=== PATIENT | female | born 1995 | race Caucasian/White ===

== ENCOUNTER 2017-11-14 22:55 | Emergency (ER) | payer OTHER ==
[~2017-11-14] VITALS: Ht 162.6 cm; Wt 83.9 kg
[2017-11-14 22:59] VITALS: BP 116/74
--- NOTE | 2017-11-14 23:03 | NUR ---
PT PROVIDED URINE SAMPLE THEN AMBULATED TO [facility] W/ STEADY GAIT IN STABLE CONDITION.
--- NOTE | 2017-11-14 23:12 | NUR ---
PT TO ER BED 5
--- NOTE | 2017-11-14 23:41 | NUR ---
PT BIB SELF C/O HEADACHE, N/V SINCE THIS AFTERNOON. ABD IS FLAT, SOFT, NON TENDER, ACTIVE BS X4. PT STATES SHE IS 6-7 WEEKS , LMP September. PT DENIES ANY VAGINAL BLEEDING. PT LAYING IN BED, AWAKE, COMFORT NEEDS MET AT THIS TIME.
[2017-11-15] MEDS ORDERED: diphenhydrAMINE 50 MG/ML VIAL IVP ONE (00:30)
[2017-11-15] MEDS ORDERED: NACL 0.9% 1,000 ML IV ONE (00:30)
[2017-11-15] MEDS ORDERED: METOCLOPRAMIDE 10 MG/2 ML INJ VIAL IVP STA (00:30)
--- NOTE | 2017-11-15 01:12 | NUR ---
PT TO US VIA WHEELCHAIR.
--- NOTE | 2017-11-15 01:12 | NUR ---
Higinio woodward in [facility] - 11/15/17 at 0116 by MEDBLAKE PT US VIA WHEELCHAIR.
[2017-11-15 01:18] LABS: APPEARANCE,URINE CLEAR (CLEAR); BILIRUBIN,URINE NEGATIVE (NEGATIVE); BLOOD, URINE NEGATIVE (NEGATIVE); COLOR,URINE YELLOW (YELLOW); LEUKOCYTE ESTERASE ,URINE NEGATIVE (NEGATIVE); NITRITE, URINE NEGATIVE (NEGATIVE); UGLUCOSE NEGATIVE (NEGATIVE)
[2017-11-15 02:58] VITALS: BP 115/68
--- NOTE | 2017-11-15 03:04 | NUR ---
Patient discharged with v/s stable. Written and verbal after care instructions given and explained. Patient alert, oriented and verbalized understanding of instructions. Ambulatory with steady gait. All questions addressed prior to discharge. ID band removed. Patient advised to follow up with PMD. Rx of REGLAN 5MG given. Patient educated on indication of medication including possible reaction and side effects. Opportunity to ask questions provided and answered.
== END 2017-11-15 02:58 | disposition home or self-care (01) ==
LOC: MED 22:55
DX: O21.8 Other vomiting complicating pregnancy (principal); O26.891 Other specified pregnancy related conditions, first trimester; R10.13 Epigastric pain; R42 Dizziness and giddiness; R51 Headache; J45.909 Unspecified asthma, uncomplicated; Z3A.01 Less than 8 weeks gestation of pregnancy
CPT/HCPCS: 76817; 81003; 81025; 96361; 96374; 96375; 99285; J1200; J2765; J7030; Q0092

== ENCOUNTER 2017-11-27 19:38 | Emergency (ER) | payer OTHER ==
[~2017-11-27] VITALS: Ht 154.9 cm; Wt 79.4 kg
[2017-11-27 20:02] VITALS: BP 113/82
--- NOTE | 2017-11-27 20:02 | NUR ---
PT PRESENTS TO ED N/V X4 WEEKS. PT STATES 14 WKS . C/O SCANT BRIGHT RED BLOOD DROPPLETS IN EMESIS. PT DENIES COFFEE GROUND EMESIS. PT A&OX4. VSS. POSITIONED IN BED FOR COMFORT. ER MD AWARE. CONTINUE TO MONITOR.
--- NOTE | 2017-11-27 20:02 | NUR ---
TO BED # 4 AMBULATORY, REPORT GIVEN TO ZEINAB MARTINEZ
--- NOTE | 2017-11-27 21:28 | NUR ---
PT TAKEN TO ULTRASOUND
--- NOTE | 2017-11-27 21:45 | NUR ---
PT RETURN FROM ULTRASOUND
--- NOTE | 2017-11-27 21:51 | NUR ---
Dr. Welch evaluating patient at bedside.
[2017-11-27] MEDS ORDERED: NACL 0.9% 500 ML IV ONE (22:25)
[2017-11-27] MEDS ORDERED: ONDANSETRON 4 MG/2 ML VIAL IVP ONE (22:25)
[2017-11-27 22:30] LABS: BASOPHILS % (AUTO) 0.2 % (0.0-2.0); EOSINOPHILS % (AUTO) 0.2 % (0.0-4.0); HEMATOCRIT 41.5 % (36-48); HEMOGLOBIN 14.1 g/dL (12.0-16.0); LYMPHOCYTES # (AUTO) 2.7 K/uL (2.5-16.5); LYMPHOCYTES % (AUTO) 20.7 % (20.5-51.1); MEAN CORPUSCULAR HEMOGLOBIN 31 pg (27-31); MEAN CORPUSCULAR HGB CONC 34 g/dL (33-37); MONOCYTES # (AUTO) 0.7 K/uL (0.8-1.0); MONOCYTES % (AUTO) 5.5 % (1.7-9.3); NEUTROPHILS # (AUTO) 9.6 K/uL (1.8-7.7); NEUTROPHILS % (AUTO) 73.4 % (42.2-75.2); PLATELET COUNT (AUTO) 222 K/uL (140-450); RED BLOOD CELL COUNT(AUTO) 4.56 MIL/uL (4.20-5.40); RED CELL DISTRIBUTION WIDTH 12.9 % (11.6-13.7); WHITE BLOOD COUNT (AUTO) 13.2 K/uL (4.5-11.0)
[2017-11-27 22:43] LABS: APPEARANCE,URINE CLOUDY (CLEAR); BILIRUBIN,URINE NEGATIVE (NEGATIVE); BLOOD, URINE 1+ (NEGATIVE); COLOR,URINE YELLOW (YELLOW); LEUKOCYTE ESTERASE ,URINE 2+ (NEGATIVE); NITRITE, URINE NEGATIVE (NEGATIVE); UGLUCOSE NEGATIVE (NEGATIVE)
[2017-11-27 22:44] LABS: ANION GAP 13.6 (8-16); CARBON DIOXIDE 27.3 mmol/L (21-32); CREATININE 0.6 mg/dL (0.6-1.3); POTASSIUM 3.9 mmol/L (3.5-5.1)
[2017-11-27 23:13] LABS: RBC,URINE 11-20 (MOD) /HPF (0-5); WBC,URINE TOO MANY TO COUNT /HPF (0-5)
--- NOTE | 2017-11-27 23:26 | NUR ---
PT IN BED RESTING WITH EYES OPEN. POSITIONED FOR COMFORT. ER MD AWARE. CONTINUE TO MONITOR.
[2017-11-27 23:38] VITALS: BP 113/75
--- NOTE | 2017-11-27 23:38 | NUR ---
Patient discharged with v/s stable. Written and verbal after care instructions given and explained. Patient alert, oriented and verbalized understanding of instructions. Ambulatory with steady gait. All questions addressed prior to discharge. ID band removed. Patient advised to follow up with PMD. Rx of MACROBID, ZOFRAN given. Patient educated on indication of medication including possible reaction and side effects. Opportunity to ask questions provided and answered.
[2017-11-28] MEDS ORDERED: NITROFURANTOIN 100 MG CAP PO SCH (08:00)
== END 2017-11-27 23:38 | disposition home or self-care (01) ==
LOC: MED 19:38
DX: O23.41 Unspecified infection of urinary tract in pregnancy, first trimester (principal); Z3A.08 8 weeks gestation of pregnancy; J45.909 Unspecified asthma, uncomplicated
CPT/HCPCS: 36415; 76801; 80048; 81001; 81025; 84702; 85025; 86900; 86901; 87086; 96361; 96374; 99285; J2405; J7030; Q0092

== ENCOUNTER 2017-12-22 21:42 | Emergency (ER) | payer OTHER ==
[~2017-12-22] VITALS: Ht 162.6 cm; Wt 79.9 kg
[2017-12-22 21:42] VITALS: BP 103/57
[2017-12-22] MEDS ORDERED: PREN-546 PO (21:52)
[2017-12-22] MEDS ORDERED: ONDA4ODT1 SL (21:52)
--- NOTE | 2017-12-22 21:55 | NUR ---
PT AMBULATED TO BED 11
--- NOTE | 2017-12-22 22:00 | NUR ---
C/O DIFFICULTY BREATHING AND CHEST TIGHTNESS X 1 DAY. ALSO REPORTS PRODUCTIVE COUGH X 1 WEEK. ALL LUNG SOUNDS CBTA PMH: ASTHMA, IUP 13 WEEKS,
[2017-12-22 23:01] LABS: APPEARANCE,URINE CLOUDY (CLEAR); BILIRUBIN,URINE NEGATIVE (NEGATIVE); BLOOD, URINE NEGATIVE (NEGATIVE); COLOR,URINE YELLOW (YELLOW); LEUKOCYTE ESTERASE ,URINE 1+ (NEGATIVE); NITRITE, URINE NEGATIVE (NEGATIVE); PH,URINE 7.5 (5.0-9.0); UGLUCOSE NEGATIVE (NEGATIVE)
[2017-12-22 23:18] LABS: RBC,URINE 0-5 (RARE) /HPF (0-5); URINE AMORPHOUS URATE 4+ /HPF (None Seen)
--- NOTE | 2017-12-22 23:31 | NUR ---
AWAITING DISCAHRGE ORDERS FROM DR BAÑUELOS AT THIS TIME
[2017-12-22 23:47] VITALS: BP 138/78
--- NOTE | 2017-12-22 23:48 | NUR ---
Patient discharged with v/s stable. Written and verbal after care instructions given and explained. Patient alert, oriented and verbalized understanding of instructions. Ambulatory with steady gait. All questions addressed prior to discharge. ID band removed. Patient advised to follow up with PMD. Opportunity to ask questions provided and answered.
== END 2017-12-22 23:47 | disposition home or self-care (01) ==
LOC: MED 21:42
DX: O26.891 Other specified pregnancy related conditions, first trimester (principal); R06.02 Shortness of breath; J45.909 Unspecified asthma, uncomplicated; Z79.899 Other long term (current) drug therapy; Z3A.13 13 weeks gestation of pregnancy
CPT/HCPCS: 81001; 81025; 87086; 99284

== ENCOUNTER 2018-01-12 19:47 | Emergency (ER) | payer OTHER ==
[~2018-01-12] VITALS: Ht 162.6 cm; Wt 75.7 kg
[~2018-01-12 19:47] MED LIST: ONDA4ODT1 SL; PREN-546 PO
[2018-01-12 20:02] VITALS: BP 104/71
[2018-01-12] MEDS ORDERED: NACL 0.9% 1,000 ML IV ONE (21:20)
[2018-01-12] MEDS ORDERED: ONDANSETRON 4 MG/2 ML VIAL IVP ONE (21:20)
[2018-01-12 21:45] LABS: BASOPHILS % (AUTO) 0.3 % (0.0-2.0); EOSINOPHILS % (AUTO) 0.2 % (0.0-4.0); HEMATOCRIT 38.6 % (36-48); LYMPHOCYTES # (AUTO) 2.1 K/uL (2.5-16.5); LYMPHOCYTES % (AUTO) 17.4 % (20.5-51.1); MEAN CORPUSCULAR HEMOGLOBIN 30 pg (27-31); MEAN CORPUSCULAR HGB CONC 34 g/dL (33-37); MEAN CORPUSCULAR VOLUME 90.6 fL (80-94); MONOCYTES # (AUTO) 0.8 K/uL (0.8-1.0); MONOCYTES % (AUTO) 6.5 % (1.7-9.3); NEUTROPHILS # (AUTO) 9.1 K/uL (1.8-7.7); NEUTROPHILS % (AUTO) 75.6 % (42.2-75.2); PLATELET COUNT (AUTO) 210 K/uL (140-450); RED BLOOD CELL COUNT(AUTO) 4.26 MIL/uL (4.20-5.40); RED CELL DISTRIBUTION WIDTH 12.7 % (11.6-13.7)
[2018-01-12 21:50] LABS: APPEARANCE,URINE SLIGHTLY CLOUDY (CLEAR); BILIRUBIN,URINE NEGATIVE (NEGATIVE); BLOOD, URINE TRACE (NEGATIVE); COLOR,URINE YELLOW (YELLOW); LEUKOCYTE ESTERASE ,URINE NEGATIVE (NEGATIVE); NITRITE, URINE NEGATIVE (NEGATIVE); PH,URINE 6.5 (5.0-9.0); UGLUCOSE NEGATIVE (NEGATIVE)
[2018-01-12 21:52] LABS: RBC,URINE 0-5 (RARE) /HPF (0-5)
[2018-01-12 21:52] LABS: ANION GAP 13.1 (8-16); CARBON DIOXIDE 26.3 mmol/L (21-32); CREATININE 0.5 mg/dL (0.6-1.3); POTASSIUM 3.4 mmol/L (3.5-5.1)
[2018-01-12 23:12] VITALS: BP 104/71
== END 2018-01-12 23:12 | disposition home or self-care (01) ==
LOC: MED 19:47
DX: O23.42 Unspecified infection of urinary tract in pregnancy, second trimester (principal); Z3A.16 16 weeks gestation of pregnancy; O99.512 Diseases of the respiratory system complicating pregnancy, second trimester; Z79.1 Long term (current) use of non-steroidal anti-inflammatories (NSAID); Z79.899 Other long term (current) drug therapy
CPT/HCPCS: 36415; 76805; 80048; 81001; 84702; 85025; 86900; 86901; 87086; 96361; 96374; 99285; J2405; J7030; Q0092

== ENCOUNTER 2018-02-09 17:36 | Emergency (ER) | payer OTHER ==
[~2018-02-09] VITALS: Ht 162.6 cm; Wt 78.9 kg
[2018-02-09 17:44] VITALS: BP 108/64
--- NOTE | 2018-02-09 17:47 | NUR ---
PT PROVIDES URINE SAMPLE AT THIS TIME AND AMBULATES TO LOBBY W/ STEADY GAIT AND VSS TO WAIT FOR AN AVAILABLE BED.
--- NOTE | 2018-02-09 19:00 | NUR ---
PATIENT LEFT WITHOUT BEING SEEN BY DR. GODOY. NO FURTHER CARE PROVIDED FOR PATIENT 1904---2ND CALL, NO ANSWER 1909---3RD CALL, NO ANSWER.
== END 2018-02-09 19:00 | disposition left against medical advice (07) ==
LOC: MED 17:36
DX: O26.891 Other specified pregnancy related conditions, first trimester (principal); R51 Headache; O21.8 Other vomiting complicating pregnancy; J45.909 Unspecified asthma, uncomplicated; Z3A.20 20 weeks gestation of pregnancy; Z53.21 Procedure and treatment not carried out due to patient leaving prior to being seen by health care provider

== ENCOUNTER 2018-02-18 13:55 | Emergency (ER) | payer OTHER ==
[~2018-02-18] VITALS: Ht 165.1 cm; Wt 76.7 kg
[2018-02-18 14:02] VITALS: BP 92/62
--- NOTE | 2018-02-18 14:05 | NUR ---
AMBULATED TO BED 12
--- NOTE | 2018-02-18 14:05 | NUR ---
URINE CUP HANDED TO PT
--- NOTE | 2018-02-18 14:10 | NUR ---
C/O RIGHT PELIC SHARP PAIN X TODAY RADIATING TO BACK DENIES DYSURIA, DENIES VAG BLEEDING LAST MENSTRUAL 09/23/2017 HX---ASTHMA, SCOLIOSIS RX---COMPAZINE, ALBUTEROL
[2018-02-18 15:05] VITALS: BP 115/75
== END 2018-02-18 15:05 | disposition home or self-care (01) ==
LOC: MED 13:55
DX: O23.42 Unspecified infection of urinary tract in pregnancy, second trimester (principal); J45.909 Unspecified asthma, uncomplicated; Z3A.21 21 weeks gestation of pregnancy; Z79.899 Other long term (current) drug therapy
CPT/HCPCS: 81002; 81025; 99283

== ENCOUNTER 2018-03-05 17:55 | Observation (INO) | payer OTHER ==
[~2018-03-05] VITALS: Ht 162.6 cm; Wt 78.0 kg
[~2018-03-05 17:55] MED LIST changes: +ONDA-121 SL; -ONDA4ODT1 SL
[2018-03-05] MEDS ORDERED: NALBUPHINE 10 MG/ML AMP IVP PRN (18:25)
[2018-03-05] MEDS ORDERED: NALBUPHINE 10 MG/ML AMP ONE (18:53)
[2018-03-05 18:55] VITALS: BP 109/55
[2018-03-05 18:56] LABS: BASOPHILS % (AUTO) 0.3 % (0.0-2.0); EOSINOPHILS # (AUTO) 0.1 K/uL (0-0.4); EOSINOPHILS % (AUTO) 0.4 % (0.0-4.0); HEMATOCRIT 38.4 % (36-48); HEMOGLOBIN 12.4 g/dL (12.0-16.0); LYMPHOCYTES # (AUTO) 2.4 K/uL (2.5-16.5); LYMPHOCYTES % (AUTO) 18.3 % (20.5-51.1); MEAN CORPUSCULAR HEMOGLOBIN 30 pg (27-31); MEAN CORPUSCULAR HGB CONC 32 g/dL (33-37); MONOCYTES # (AUTO) 0.9 K/uL (0.8-1.0); MONOCYTES % (AUTO) 6.6 % (1.7-9.3); NEUTROPHILS % (AUTO) 74.4 % (42.2-75.2); PLATELET COUNT (AUTO) 240 K/uL (140-450); RED BLOOD CELL COUNT(AUTO) 4.13 MIL/uL (4.20-5.40); RED CELL DISTRIBUTION WIDTH 12.4 % (11.6-13.7); WHITE BLOOD COUNT (AUTO) 13.4 K/uL (4.5-11.0)
[2018-03-05 19:34] LABS: APPEARANCE,URINE CLEAR (CLEAR); BILIRUBIN,URINE NEGATIVE (NEGATIVE); BLOOD, URINE 2+ (NEGATIVE); COLOR,URINE YELLOW (YELLOW); LEUKOCYTE ESTERASE ,URINE NEGATIVE (NEGATIVE); NITRITE, URINE NEGATIVE (NEGATIVE); UGLUCOSE NEGATIVE (NEGATIVE)
[2018-03-05 19:40] LABS: RBC,URINE 11-20 (MOD) /HPF (0-5); WBC,URINE 0-5 (RARE) /HPF (0-5)
== END 2018-03-05 22:10 | disposition home or self-care (01) ==
LOC: MLD 17:55
PROVIDERS: ADMIT Obstetrics & Gynecology; ATTEND Obstetrics & Gynecology
DX: O26.892 Other specified pregnancy related conditions, second trimester (principal); R10.32 Left lower quadrant pain; Z3A.23 23 weeks gestation of pregnancy
CPT/HCPCS: 36415; 81001; 85025; G0378; J2300

== ENCOUNTER 2019-11-16 23:04 | Emergency (ER) | payer MEDICAID, OTHER ==
[~2019-11-16] VITALS: Ht 165.1 cm; Wt 86.2 kg
[~2019-11-16 23:04] MED LIST changes: +CALCIUM; +FERR-252 PO; -ONDA-121 SL
[2019-11-16 23:15] VITALS: BP 111/78
--- NOTE | 2019-11-16 23:22 | NUR ---
PT TAKEN TO BED 1
--- NOTE | 2019-11-16 23:52 | NUR ---
US AT BEDSIDE.
[2019-11-16 23:57] LABS: BASOPHILS # (AUTO) 0.1 K/uL (0.00-0.22); BASOPHILS % (AUTO) 0.6 % (0.0-2.0); EOSINOPHILS # (AUTO) 0.1 K/uL (0-0.4); EOSINOPHILS % (AUTO) 0.6 % (0.0-4.0); HEMATOCRIT 40.3 % (36-48); HEMOGLOBIN 13.6 g/dL (12.0-16.0); LYMPHOCYTES # (AUTO) 2.9 K/uL (2.5-16.5); LYMPHOCYTES % (AUTO) 21.7 % (20.5-51.1); MEAN CORPUSCULAR HEMOGLOBIN 30 pg (27-31); MEAN CORPUSCULAR HGB CONC 34 g/dL (33-37); MEAN CORPUSCULAR VOLUME 88.8 fL (80-94); MONOCYTES # (AUTO) 0.7 K/uL (0.8-1.0); MONOCYTES % (AUTO) 5.6 % (1.7-9.3); NEUTROPHILS # (AUTO) 9.5 K/uL (1.8-7.7); NEUTROPHILS % (AUTO) 71.5 % (42.2-75.2); PLATELET COUNT (AUTO) 253 K/uL (140-450); RED BLOOD CELL COUNT(AUTO) 4.54 MIL/uL (4.20-5.40); RED CELL DISTRIBUTION WIDTH 13.2 % (11.6-13.7); WHITE BLOOD COUNT (AUTO) 13.2 K/uL (4.8-10.8)
[2019-11-16 23:57] LABS: APPEARANCE,URINE CLEAR (CLEAR); BILIRUBIN,URINE NEGATIVE (NEGATIVE); BLOOD, URINE 3+ (NEGATIVE); COLOR,URINE YELLOW (YELLOW); LEUKOCYTE ESTERASE ,URINE NEGATIVE (NEGATIVE); NITRITE, URINE NEGATIVE (NEGATIVE); UGLUCOSE NEGATIVE (NEGATIVE)
--- NOTE | 2019-11-17 00:11 | NUR ---
24 Y/O F PRESENTS TO ED C/O VAGINAL BLEEDING X 30 MINS PRIOR TO ARRIVAL. PT STATES THAT SHE WAS SEEN IN THE ER BEFORE FOR VAGINAL BLEEDING AND WAS DIAGNOSED WITH THREATENED MISCARRIAGE. PT ALSO STATES THAT A FEW WEEKS AGO SHE ALSO HAD ANOTHER EPISODE OF VAGINAL BLEEDING AND WAS TOLD HER "BABY WAS OKAY." PT STATES THAT BLEEDING NOW IS NOT A LOT BUT STATES HER URINE LOOKS "A LITTLE RED." ALSO C/O LOWER BACK PAIN 09/18. DENIES VOMIING/NAUSEA/DIARRHEA. VSS. BED LOCKED AND IN LOWEST POSITION, SIDE RAIL UP X1. WILL CONTINUE TO MONITOR. MHX: DENIES NKA
[2019-11-17 00:15] LABS: WBC,URINE 0-5 /HPF (0-5)
--- NOTE | 2019-11-17 00:39 | NUR ---
Dr. Munguia examining patient.
[2019-11-17 00:56] VITALS: BP 111/78
== END 2019-11-17 00:50 | disposition home or self-care (01) ==
LOC: MED 23:04
DX: O20.0 Threatened abortion (principal); Z3A.08 8 weeks gestation of pregnancy; J45.909 Unspecified asthma, uncomplicated; Z79.899 Other long term (current) drug therapy
CPT/HCPCS: 36415; 76817; 81001; 81025; 84702; 85025; 99284; Q0092

== ENCOUNTER 2019-12-02 12:10 | Emergency (ER) | payer MEDICAID ==
[~2019-12-02] VITALS: Ht 162.6 cm; Wt 81.6 kg
[2019-12-02 12:53] VITALS: BP 111/50
--- NOTE | 2019-12-02 12:59 | NUR ---
WAIT AT LOBBY. HANDED ON URINE CUP.
--- NOTE | 2019-12-02 13:48 | NUR ---
Patient being evaluated by dr peguero at bedside.
--- NOTE | 2019-12-02 13:48 | NUR ---
pt amb to [facility]
--- NOTE | 2019-12-02 13:49 | NUR ---
C/O RLQ ABDOMINAL PAIN , BACK PAIN ,N/V X YESTERDAY AND C/O DIARRHEA 2 EPISODES TODAY. 11 WEEKS. LMP 09/16/19. MED HX:SCOLIOSIS
[2019-12-02] MEDS ORDERED: ONDANSETRON 4 MG ODT PO ONE (13:55)
[2019-12-02] MEDS ORDERED: ACETAMINOPHEN 325 MG TAB PO ONE (13:55)
--- NOTE | 2019-12-02 14:02 | NUR ---
Pt ambulated to bed 09
[2019-12-02 14:36] LABS: BASOPHILS # (AUTO) 0.1 K/uL (0.00-0.22); BASOPHILS % (AUTO) 0.5 % (0.0-2.0); EOSINOPHILS % (AUTO) 0.3 % (0.0-4.0); HEMATOCRIT 39.8 % (36-48); HEMOGLOBIN 13.4 g/dL (12.0-16.0); LYMPHOCYTES # (AUTO) 2.3 K/uL (2.5-16.5); MEAN CORPUSCULAR HEMOGLOBIN 31 pg (27-31); MEAN CORPUSCULAR HGB CONC 34 g/dL (33-37); MEAN CORPUSCULAR VOLUME 91.1 fL (80-94); MONOCYTES # (AUTO) 0.7 K/uL (0.8-1.0); MONOCYTES % (AUTO) 5.1 % (1.7-9.3); NEUTROPHILS # (AUTO) 9.8 K/uL (1.8-7.7); NEUTROPHILS % (AUTO) 76.1 % (42.2-75.2); PLATELET COUNT (AUTO) 235 K/uL (140-450); RED BLOOD CELL COUNT(AUTO) 4.37 MIL/uL (4.20-5.40); RED CELL DISTRIBUTION WIDTH 13.4 % (11.6-13.7); WHITE BLOOD COUNT (AUTO) 12.9 K/uL (4.8-10.8)
[2019-12-02 14:54] LABS: APPEARANCE,URINE HAZY (CLEAR); BILIRUBIN,URINE NEGATIVE (NEGATIVE); BLOOD, URINE TRACE-I (NEGATIVE); COLOR,URINE YELLOW (YELLOW); LEUKOCYTE ESTERASE ,URINE NEGATIVE (NEGATIVE); NITRITE, URINE NEGATIVE (NEGATIVE); UGLUCOSE NEGATIVE (NEGATIVE)
[2019-12-02 15:06] LABS: ALBUMIN 3.3 g/dL (3.4-5.0); ANION GAP 13.3 (8-16); CARBON DIOXIDE 25.7 mmol/L (21-32); CREATININE 0.5 mg/dL (0.6-1.3); TOTAL BILIRUBIN 0.2 mg/dL (0.0-1.0)
[2019-12-02 15:07] LABS: RBC,URINE 11-20 (MOD) /HPF (0-5); WBC,URINE 0-5 /HPF (0-5)
[2019-12-02 15:56] VITALS: BP 95/58
--- NOTE | 2019-12-02 15:56 | NUR ---
Patient discharged with v/s stable. Written and verbal after care instructions given and explained. Patient alert, oriented and verbalized understanding of instructions. Ambulatory with steady gait. All questions addressed prior to discharge. ID band removed. Patient advised to follow up with PMD. Rx of Diclegis given. Patient educated on indication of medication including possible reaction and side effects. Opportunity to ask questions provided and answered.
== END 2019-12-02 15:56 | disposition home or self-care (01) ==
LOC: MED 12:10
DX: O26.891 Other specified pregnancy related conditions, first trimester (principal); O21.8 Other vomiting complicating pregnancy; R10.9 Unspecified abdominal pain; J45.909 Unspecified asthma, uncomplicated; Z79.899 Other long term (current) drug therapy; Z3A.11 11 weeks gestation of pregnancy
CPT/HCPCS: 36415; 76705; 80053; 81001; 81025; 83690; 85025; 87086; 99284; Q0092; Q0162

== ENCOUNTER 2020-01-06 13:39 | Emergency (ER) | payer MEDICAID ==
[~2020-01-06] VITALS: Ht 162.6 cm; Wt 78.0 kg
--- NOTE | 2020-01-06 13:51 | NUR ---
Patient ambulated to bed 5. RN evaluating patient at bedside.
[2020-01-06 13:57] VITALS: BP 109/60
--- NOTE | 2020-01-06 14:05 | NUR ---
24 YO FEMALE PRESENTS WITH 16 WKS OF ; LMP 7-7-20, A0. PT C/O ABD/PELVIC CRAMPING RADIATING TO LOWER BACK STARTING TODAY ACCOMPANIED BY NAUSEA. PT DENIES VAGINAL BLEEDING/DISCHARGE. PT OBGYN IS DR. MORA.
[2020-01-06] MEDS ORDERED: ONDANSETRON 4 MG/2 ML VIAL IVP ONE (14:45)
[2020-01-06] MEDS ORDERED: NACL 0.9% 1,000 ML IV ONE (14:45)
[2020-01-06] MEDS ORDERED: ACETAMINOPHEN EXTRA STRENGTH 500 MG TAB PO ONE (14:45)
[2020-01-06 14:46] LABS: BASOPHILS % (AUTO) 0.3 % (0.0-2.0); EOSINOPHILS % (AUTO) 0.3 % (0.0-4.0); HEMATOCRIT 37.8 % (36-48); HEMOGLOBIN 12.8 g/dL (12.0-16.0); LYMPHOCYTES # (AUTO) 2.4 K/uL (2.5-16.5); LYMPHOCYTES % (AUTO) 19.6 % (20.5-51.1); MEAN CORPUSCULAR HEMOGLOBIN 30 pg (27-31); MEAN CORPUSCULAR HGB CONC 34 g/dL (33-37); MEAN CORPUSCULAR VOLUME 89.8 fL (80-94); MONOCYTES # (AUTO) 0.7 K/uL (0.8-1.0); MONOCYTES % (AUTO) 5.9 % (1.7-9.3); NEUTROPHILS # (AUTO) 8.9 K/uL (1.8-7.7); NEUTROPHILS % (AUTO) 73.9 % (42.2-75.2); PLATELET COUNT (AUTO) 235 K/uL (140-450); RED BLOOD CELL COUNT(AUTO) 4.22 MIL/uL (4.20-5.40); RED CELL DISTRIBUTION WIDTH 13.1 % (11.6-13.7); WHITE BLOOD COUNT (AUTO) 12.1 K/uL (4.8-10.8)
[2020-01-06 14:51] LABS: APPEARANCE,URINE CLEAR (CLEAR); BILIRUBIN,URINE 1+ (NEGATIVE); BLOOD, URINE TRACE-I (NEGATIVE); COLOR,URINE YELLOW (YELLOW); LEUKOCYTE ESTERASE ,URINE NEGATIVE (NEGATIVE); NITRITE, URINE NEGATIVE (NEGATIVE); UGLUCOSE NEGATIVE (NEGATIVE)
[2020-01-06 15:01] LABS: RBC,URINE 0-5 /HPF (0-5); WBC,URINE 0-5 /HPF (0-5)
[2020-01-06 15:09] LABS: CARBON DIOXIDE 24.4 mmol/L (21-32); CREATININE 0.5 mg/dL (0.6-1.3); POTASSIUM 3.4 mmol/L (3.5-5.1); TOTAL BILIRUBIN 0.2 mg/dL (0.0-1.0)
[2020-01-06 16:22] VITALS: BP 97/51
== END 2020-01-06 16:22 | disposition home or self-care (01) ==
LOC: MED 13:39
DX: O26.891 Other specified pregnancy related conditions, first trimester (principal); R10.2 Pelvic and perineal pain; J45.909 Unspecified asthma, uncomplicated; Z3A.16 16 weeks gestation of pregnancy; Z79.899 Other long term (current) drug therapy
CPT/HCPCS: 36415; 76805; 80053; 81001; 84702; 85025; 86900; 86901; 87210; 96361; 96374; 99284; J2405; J7030; Q0092

== ENCOUNTER 2020-01-21 13:51 | Emergency (ER) | payer MEDICAID ==
[~2020-01-21] VITALS: Ht 162.6 cm; Wt 79.5 kg
[2020-01-21 13:55] VITALS: BP 99/64
[2020-01-21] MEDS ORDERED: PROCHLORPERAZINE 10 MG/2 ML VIAL IVP ONE (14:20)
[2020-01-21] MEDS ORDERED: NACL 0.9% 1,000 ML IV ONE (14:20)
[2020-01-21 15:11] LABS: ANION GAP 12.2 (8-16); CARBON DIOXIDE 23.6 mmol/L (21-32); CREATININE 0.5 mg/dL (0.6-1.3); POTASSIUM 3.8 mmol/L (3.5-5.1)
[2020-01-21 15:16] VITALS: BP 101/65
== END 2020-01-21 15:16 | disposition home or self-care (01) ==
LOC: MED 13:51
DX: O21.9 Vomiting of pregnancy, unspecified (principal); J45.909 Unspecified asthma, uncomplicated; Z3A.18 18 weeks gestation of pregnancy; Z79.899 Other long term (current) drug therapy
CPT/HCPCS: 36415; 80048; 96374; 99284; J0780; J7030

== ENCOUNTER 2020-04-20 14:30 | Observation (INO) | payer MEDICAID, SELFPAY ==
[~2020-04-20] VITALS: Ht 162.6 cm; Wt 82.1 kg
[2020-04-20] MEDS ORDERED: MORPHINE SULFATE 4 MG/ML SYR IVP PRN (15:50)
[2020-04-20 16:00] VITALS: BP 119/63
[2020-04-20 16:35] LABS: APPEARANCE,URINE CLEAR (CLEAR); BILIRUBIN,URINE NEGATIVE (NEGATIVE); BLOOD, URINE NEGATIVE (NEGATIVE); COLOR,URINE YELLOW (YELLOW); LEUKOCYTE ESTERASE ,URINE NEGATIVE (NEGATIVE); NITRITE, URINE NEGATIVE (NEGATIVE); UGLUCOSE NEGATIVE (NEGATIVE)
== END 2020-04-20 17:40 | disposition home or self-care (01) ==
LOC: MLD 14:30
PROVIDERS: ADMIT Obstetrics & Gynecology; ATTEND Obstetrics & Gynecology
DX: O26.893 Other specified pregnancy related conditions, third trimester (principal); R10.9 Unspecified abdominal pain; Z20.822 Contact with and (suspected) exposure to COVID-19; O99.891 Other specified diseases and conditions complicating pregnancy; M54.5 Low back pain; M25.559 Pain in unspecified hip; Z3A.31 31 weeks gestation of pregnancy
CPT/HCPCS: 59025; 81000; 81003; 87426; 96372; G0378; J2270; 96374

== ENCOUNTER 2020-05-25 12:45 | Observation (INO) | payer MEDICAID, SELFPAY ==
[~2020-05-25] VITALS: Ht 162.6 cm; Wt 85.7 kg
[~2020-05-25 12:45] MED LIST changes: -CALCIUM
[2020-05-25] MEDS ORDERED: ONDANSETRON 4 MG/2 ML VIAL IVP PRN (13:25)
[2020-05-25] MEDS ORDERED: MORPHINE SULFATE 5 MG/ML VIAL IVP PRN (13:25)
[2020-05-25] MEDS ORDERED: NACL 0.9% 1,000 ML IV SCH (13:25)
[2020-05-25] MEDS ORDERED: LACTATED RINGERS 500 ML IV SCH (13:33)
[2020-05-25] MEDS ORDERED: cefTRIAXone 1,000 MG VIAL ONE (13:47)
[2020-05-25] MEDS ORDERED: NACL 0.9% 500 ML IV SCH (13:50)
[2020-05-25 14:23] LABS: BASOPHILS % (AUTO) 0.2 % (0.0-2.0); EOSINOPHILS % (AUTO) 0.5 % (0.0-4.0); HEMATOCRIT 35.3 % (36-48); HEMOGLOBIN 11.6 g/dL (12.0-16.0); LYMPHOCYTES % (AUTO) 10.8 % (20.5-51.1); MEAN CORPUSCULAR HEMOGLOBIN 28 pg (27-31); MEAN CORPUSCULAR HGB CONC 33 g/dL (33-37); MEAN CORPUSCULAR VOLUME 86.3 fL (80-94); MONOCYTES # (AUTO) 0.4 K/uL (0.8-1.0); MONOCYTES % (AUTO) 4.3 % (1.7-9.3); NEUTROPHILS % (AUTO) 84.2 % (42.2-75.2); PLATELET COUNT (AUTO) 204 K/uL (140-450); RED BLOOD CELL COUNT(AUTO) 4.09 MIL/uL (4.20-5.40); RED CELL DISTRIBUTION WIDTH 13.7 % (11.6-13.7); WHITE BLOOD COUNT (AUTO) 9.5 K/uL (4.8-10.8)
[2020-05-25 14:26] LABS: APPEARANCE,URINE CLEAR (CLEAR); BILIRUBIN,URINE NEGATIVE (NEGATIVE); BLOOD, URINE TRACE-I (NEGATIVE); COLOR,URINE YELLOW (YELLOW); LEUKOCYTE ESTERASE ,URINE NEGATIVE (NEGATIVE); NITRITE, URINE NEGATIVE (NEGATIVE); UGLUCOSE NEGATIVE (NEGATIVE)
[2020-05-25 14:40] LABS: ALBUMIN 2.9 g/dL (3.4-5.0); ANION GAP 13.9 (8-16); CARBON DIOXIDE 23.6 mmol/L (21-32); CREATININE 0.6 mg/dL (0.6-1.3); POTASSIUM 3.5 mmol/L (3.5-5.1); TOTAL BILIRUBIN 0.4 mg/dL (0.0-1.0)
[2020-05-25] MEDS ORDERED: NALBUPHINE 10 MG/ML AMP IVP PRN (14:45)
== END 2020-05-25 17:25 | disposition home or self-care (01) ==
LOC: MLD 12:45
PROVIDERS: ADMIT Obstetrics & Gynecology; ATTEND Obstetrics & Gynecology
DX: O26.893 Other specified pregnancy related conditions, third trimester (principal); R10.9 Unspecified abdominal pain; R11.0 Nausea; R06.02 Shortness of breath; Z20.822 Contact with and (suspected) exposure to COVID-19; O99.891 Other specified diseases and conditions complicating pregnancy; M54.5 Low back pain; Z3A.36 36 weeks gestation of pregnancy
CPT/HCPCS: 36415; 76770; 76805; 80053; 81000; 81003; 85025; 87426; 96361; 96374; 96375; G0378; J0696; J2300; J2405

== ENCOUNTER 2020-06-06 18:10 | Observation (INO) | payer MEDICAID, SELFPAY ==
[~2020-06-06] VITALS: Ht 162.6 cm; Wt 82.6 kg
[~2020-06-06 18:10] MED LIST changes: -FERR-252 PO
[2020-06-06 19:20] VITALS: BP 103/58
[2020-06-06] MEDS ORDERED: MORPHINE SULFATE 5 MG/ML VIAL IVP PRN (19:50)
[2020-06-06] MEDS ORDERED: LACTATED RINGERS 1,000 ML IV SCH (19:50)
[2020-06-06] MEDS: LACTATED RINGERS 1,000 ML IV SCH ×2 (20:06→21:25)
[2020-06-06 20:43] LABS: APPEARANCE,URINE CLEAR (CLEAR); BASOPHILS % (AUTO) 0.1 % (0.0-2.0); BILIRUBIN,URINE NEGATIVE (NEGATIVE); BLOOD, URINE TRACE-I (NEGATIVE); COLOR,URINE YELLOW (YELLOW); EOSINOPHILS # (AUTO) 0.1 K/uL (0-0.4); EOSINOPHILS % (AUTO) 0.8 % (0.0-4.0); HEMATOCRIT 30.2 % (36-48); HEMOGLOBIN 10.1 g/dL (12.0-16.0); LEUKOCYTE ESTERASE ,URINE 1+ (NEGATIVE); LYMPHOCYTES # (AUTO) 2.3 K/uL (2.5-16.5); LYMPHOCYTES % (AUTO) 25.3 % (20.5-51.1); MEAN CORPUSCULAR HEMOGLOBIN 29 pg (27-31); MEAN CORPUSCULAR HGB CONC 33 g/dL (33-37); MEAN CORPUSCULAR VOLUME 85.2 fL (80-94); MONOCYTES # (AUTO) 0.7 K/uL (0.8-1.0); MONOCYTES % (AUTO) 8.3 % (1.7-9.3); NEUTROPHILS # (AUTO) 5.8 K/uL (1.8-7.7); NEUTROPHILS % (AUTO) 65.5 % (42.2-75.2); NITRITE, URINE NEGATIVE (NEGATIVE); PLATELET COUNT (AUTO) 207 K/uL (140-450); RED BLOOD CELL COUNT(AUTO) 3.55 MIL/uL (4.20-5.40); RED CELL DISTRIBUTION WIDTH 13.4 % (11.6-13.7); UGLUCOSE NEGATIVE (NEGATIVE); WHITE BLOOD COUNT (AUTO) 8.9 K/uL (4.8-10.8)
[2020-06-06 20:52] LABS: BARBITURATE, URINE NEGATIVE ng/ml (NEG <=200); BENZODIAZEPINE, URINE NEGATIVE ng/mL (NEG <=200); CANNABINOID, URINE NEGATIVE ng/mL (NEG <=50); COCAINE, URINE NEGATIVE ng/mL (NEG <=300); OPIATE, URINE NEGATIVE ng/mL (NEG <=2000); PHENCYCLIDINE SCREEN,URINE NEGATIVE ng/mL (NEG <=25)
[2020-06-06 20:54] LABS: RBC,URINE 0-5 /HPF (0-5)
[2020-06-06 20:58] LABS: ALBUMIN 2.6 g/dL (3.4-5.0); ANION GAP 14.2 (8-16); CARBON DIOXIDE 25.2 mmol/L (21-32); CREATININE 0.7 mg/dL (0.6-1.3); POTASSIUM 4.4 mmol/L (3.5-5.1); TOTAL BILIRUBIN 0.3 mg/dL (0.0-1.0)
[2020-06-06] MEDS ORDERED: cefTRIAXone 1,000 MG VIAL ONE (21:49)
[2020-06-06] MEDS: NACL 0.9% 1,000 ML IV SCH (22:00)
[2020-06-06] MEDS ORDERED: MORPHINE SULFATE 10 MG/ML VIAL ONE (22:03)
[2020-06-06] MEDS: ONDANSETRON 4 MG/2 ML VIAL IVP PRN (22:09)
[2020-06-07] MEDS ORDERED: MORPHINE SULFATE 10 MG/ML VIAL ONE ×2 (04:21→10:05)
[2020-06-07] MEDS: ONDANSETRON 4 MG/2 ML VIAL IVP PRN ×3 (04:27→18:12)
[2020-06-07] MEDS: NACL 0.9% 1,000 ML IV SCH ×2 (06:13→15:37)
--- NOTE | 2020-06-07 08:28 | NUR ---
PATIENT HAS BEEN SCREENED AND CATEGORIZED LOW NUTRITION RISK. PATIENT WILL BE SEEN WITHIN 7 DAYS OF ADMISSION. 06/13/[address]
[2020-06-07 10:12] VITALS: BP 108/59
[2020-06-07] MEDS ORDERED: cefTRIAXone 1,000 MG VIAL ONE (19:50)
== END 2020-06-07 21:00 | disposition home or self-care (01) ==
LOC: MFCC 18:10
PROVIDERS: ADMIT Obstetrics & Gynecology; ATTEND Obstetrics & Gynecology
DX: O62.9 Abnormality of forces of labor, unspecified (principal); Z20.822 Contact with and (suspected) exposure to COVID-19; Z3A.38 38 weeks gestation of pregnancy
CPT/HCPCS: 36415; 76819; 80053; 80305; 81000; 81001; 85025; 86592; 86762; 86886; 86900; 86901; 87086; 87340; 87426; 87653; 96361; 96365; 96366; 96375; 96376; G0378; J0696; J2270; J2405; J7060; J7120; 96374

== ENCOUNTER 2020-12-25 11:40 | Emergency (ER) | payer MEDICAID, SELFPAY ==
[~2020-12-25] VITALS: Ht 162.6 cm; Wt 79.4 kg
[2020-12-25 11:50] VITALS: BP 107/65
--- NOTE | 2020-12-25 11:53 | NUR ---
PT TO WAIT IN TENT.
[2020-12-25] MEDS ORDERED: SUD30 PO (12:08)
[2020-12-25] MEDS ORDERED: NAPR-54 PO (12:08)
[2020-12-25] MEDS ORDERED: PROM118S5 PO (12:08)
--- NOTE | 2020-12-25 12:25 | NUR ---
JESSIE ALVARENGA WALKED TO LAB.
[2020-12-25 12:26] VITALS: BP 112/74
--- NOTE | 2020-12-25 12:26 | NUR ---
NO NURSING ASSESSMENTS DONE, NO COMPLETE INTEREVENTION NEEDED.
--- NOTE | 2020-12-25 12:27 | NUR ---
Patient discharged with v/s stable. Written and verbal after care instructions given and explained. Patient alert, oriented and verbalized understanding of instructions. Ambulatory with steady gait. All questions addressed prior to discharge. ID band removed. Patient advised to follow up with PMD. Rx of NAPROXEN, PROMETHAZINE, AND SUDAFED given. Patient educated on indication of medication including possible reaction and side effects. Opportunity to ask questions provided and answered.
== END 2020-12-25 12:26 | disposition home or self-care (01) ==
LOC: MED 11:40
DX: J06.9 Acute upper respiratory infection, unspecified (principal); Z20.822 Contact with and (suspected) exposure to COVID-19; J45.909 Unspecified asthma, uncomplicated; Z79.899 Other long term (current) drug therapy
CPT/HCPCS: 99283; U0003

== ENCOUNTER 2022-12-28 21:55 | Emergency (ER) | payer MEDICAID, OTHER ==
[~2022-12-28] VITALS: Ht 165.1 cm; Wt 81.2 kg
[~2022-12-28 21:55] MED LIST changes: +NAPR-54 PO; -PREN-546 PO; +PROM118S5 PO; +SUD30 PO
[2022-12-28 22:08] VITALS: BP 115/69; PULSE 65; RESP 16; TEMP 97.5; O2SAT 99
[2022-12-28 22:38] LABS: APPEARANCE,URINE CLEAR (CLEAR); BILIRUBIN,URINE NEGATIVE (NEGATIVE); BLOOD, URINE 3+ (NEGATIVE); COLOR,URINE YELLOW (YELLOW); LEUKOCYTE ESTERASE ,URINE NEGATIVE (NEGATIVE); NITRITE, URINE NEGATIVE (NEGATIVE); PROTEIN,URINE NEGATIVE (NEGATIVE); UGLUCOSE NEGATIVE (NEGATIVE)
[2022-12-28 22:47] LABS: BACTERIA,URINE >30 (MANY) /HPF (None Seen); MUCUS,URINE 1+ /LPF (None Seen)
[2022-12-29] MEDS ORDERED: MORPHINE SULFATE 2 MG/ML SYR IVP STA (01:21)
[2022-12-29 01:48] LABS: BASOPHILS # (AUTO) 0.1 K/uL (0.00-0.22); BASOPHILS % (AUTO) 0.6 % (0.0-2.0); EOSINOPHILS # (AUTO) 0.2 K/uL (0-0.4); EOSINOPHILS % (AUTO) 1.9 % (0.0-4.0); HEMATOCRIT 39.1 % (36-48); HEMOGLOBIN 13.1 g/dL (12.0-16.0); LYMPHOCYTES # (AUTO) 3.6 K/uL (2.5-16.5); LYMPHOCYTES % (AUTO) 33.1 % (20.5-51.1); MEAN CORPUSCULAR HEMOGLOBIN 30 pg (27-31); MEAN CORPUSCULAR HGB CONC 33 g/dL (33-37); MEAN CORPUSCULAR VOLUME 90.1 fL (80-94); MONOCYTES # (AUTO) 0.8 K/uL (0.8-1.0); MONOCYTES % (AUTO) 7.2 % (1.7-9.3); NEUTROPHILS # (AUTO) 6.2 K/uL (1.8-7.7); NEUTROPHILS % (AUTO) 57.2 % (42.2-75.2); PLATELET COUNT (AUTO) 254 K/uL (140-450); RED BLOOD CELL COUNT(AUTO) 4.34 MIL/uL (4.20-5.40); RED CELL DISTRIBUTION WIDTH 12.6 % (11.6-13.7); WHITE BLOOD COUNT (AUTO) 10.9 K/uL (4.8-10.8)
[2022-12-29 01:51] LABS: ANION GAP 10.5 (8-16); CALCIUM 8.9 mg/dL (8.5-10.1); CARBON DIOXIDE 29.1 mmol/L (21-32); CREATININE 0.6 mg/dL (0.6-1.3); POTASSIUM 4.6 mmol/L (3.5-5.1)
[2022-12-29] MEDS ORDERED: NITR100C7 PO (05:05)
[2022-12-29] MEDS ORDERED: NAPR-54 PO (05:05)
[2022-12-29 05:12] VITALS: BP 112/60; PULSE 65; RESP 16; TEMP 97.5; O2SAT 99
== END 2022-12-29 05:12 | disposition left against medical advice (07) ==
LOC: MED 21:55
DX: N39.0 Urinary tract infection, site not specified (principal); Z79.899 Other long term (current) drug therapy
CPT/HCPCS: 36415; 72193; 80048; 81001; 81025; 85025; 87086; 96374; 99285; J2270; Q9967

== ENCOUNTER 2023-03-01 22:04 | Emergency (ER) | payer OTHER ==
[~2023-03-01] VITALS: Ht 162.6 cm; Wt 85.7 kg
[~2023-03-01 22:04] MED LIST changes: +NITR100C7 PO
[2023-03-01 23:04] VITALS: BP 117/84; PULSE 87; RESP 18; TEMP 98; O2SAT 95
[2023-03-01] MEDS ORDERED: KETOROLAC 30 MG/ML VIAL IVP ONE (23:35)
[2023-03-01] MEDS ORDERED: diphenhydrAMINE 50 MG/ML VIAL IVP ONE (23:35)
[2023-03-01] MEDS ORDERED: PROCHLORPERAZINE 10 MG/2 ML VIAL IVP ONE (23:35)
[2023-03-01] MEDS ORDERED: NACL 0.9% 1,000 ML IV ONE (23:40)
[2023-03-01 23:43] LABS: APPEARANCE,URINE CLEAR (CLEAR); BILIRUBIN,URINE NEGATIVE (NEGATIVE); BLOOD, URINE 1+ (NEGATIVE); COLOR,URINE YELLOW (YELLOW); LEUKOCYTE ESTERASE ,URINE NEGATIVE (NEGATIVE); NITRITE, URINE NEGATIVE (NEGATIVE); PROTEIN,URINE TRACE (NEGATIVE); UGLUCOSE NEGATIVE (NEGATIVE)
[2023-03-01 23:58] LABS: BACTERIA,URINE >30 (MANY) /HPF (None Seen); MUCUS,URINE 1+ /LPF (None Seen); SQUAMOUS EPITHELIAL CELL,UR 0-3 (FEW) /LPF (0-3 (FEW)); WBC,URINE 0-5 /HPF (0-5)
[2023-03-02 00:01] LABS: BASOPHILS % (AUTO) 0.2 % (0.0-2.0); EOSINOPHILS # (AUTO) 0.1 K/uL (0-0.4); EOSINOPHILS % (AUTO) 0.7 % (0.0-4.0); HEMATOCRIT 37.7 % (36-48); LYMPHOCYTES % (AUTO) 22.9 % (20.5-51.1); MEAN CORPUSCULAR HEMOGLOBIN 31 pg (27-31); MEAN CORPUSCULAR HGB CONC 34 g/dL (33-37); MEAN CORPUSCULAR VOLUME 90.1 fL (80-94); MONOCYTES # (AUTO) 0.9 K/uL (0.8-1.0); MONOCYTES % (AUTO) 6.6 % (1.7-9.3); NEUTROPHILS % (AUTO) 69.6 % (42.2-75.2); PLATELET COUNT (AUTO) 257 K/uL (140-450); RED BLOOD CELL COUNT(AUTO) 4.19 MIL/uL (4.20-5.40); RED CELL DISTRIBUTION WIDTH 12.8 % (11.6-13.7); WHITE BLOOD COUNT (AUTO) 12.9 K/uL (4.8-10.8)
[2023-03-02 00:23] LABS: ALBUMIN 3.5 g/dL (3.4-5.0); ANION GAP 12.5 (8-16); CALCIUM 9.1 mg/dL (8.5-10.1); CARBON DIOXIDE 27.1 mmol/L (21-32); CREATININE 0.6 mg/dL (0.6-1.3); POTASSIUM 3.6 mmol/L (3.5-5.1); TOTAL BILIRUBIN 0.2 mg/dL (0.0-1.0); TOTAL PROTEIN, SERUM 7.8 g/dL (6.4-8.2)
[2023-03-02] MEDS ORDERED: ACET-9882 PO (00:25)
[2023-03-02] MEDS ORDERED: AMOX1TAB8 PO (00:25)
[2023-03-02] MEDS ORDERED: ONDA-188 PO (00:25)
== END 2023-03-02 00:11 | disposition left against medical advice (07) ==
LOC: MED 22:04
DX: N39.0 Urinary tract infection, site not specified (principal); A05.9 Bacterial foodborne intoxication, unspecified; R11.2 Nausea with vomiting, unspecified; R51.9 Headache, unspecified; Z79.899 Other long term (current) drug therapy
CPT/HCPCS: 36415; 80053; 81001; 81025; 83690; 85025; 87086; 96361; 96374; 96375; 99284; J0780; J1200; J1885; J7030